=== PATIENT | female | born 1980 | race Caucasian/White ===

== ENCOUNTER → 2016-10-11 | Outpatient (CLI) | payer BC ==
[~2016-10-11] MED LIST: ACET500L36 PO; AMOX500C5 PO; AZIT250T5 PO; AZIT250T81 PO; BENZ-22 PO; GFN600TCR PO; SRTR100T PO
[2016-10-11 16:11] VITALS: BP 142/78
--- NOTE | 2016-10-11 16:11 | Urgent Care T Sheet Gen (E) ---
Intake General Temperature (Fahrenheit): 98.6 Pulse: 92 Blood Pressure Systolic: 142 Blood Pressure Diastolic: 78 Respirations: 18 SPO2: 98 Description of Symptoms Patient presents with L ear pain and fullness since Friday. patient states sounds are muffled and whistle at times. No fever. No history of allergies. No recent cold or nasal congestion. No meds to treat her symptoms. History of Present Illness Allergies: Coded Allergies: No Known Drug Allergies (Unverified , 07/22/15) Home Meds Active Scripts Azithromycin (Zithromax Z-Lasha)6 Tab/Pkt [id number] Mg PO SEE INSTRUCTIONS #6 TAB Ref 0 Day One: Take 2 tablets by mouth Days Two-Five: Take 1 tablet by mouth Prov:DONAL BRANDON 04/23/16 Benzonatate (Tessalon Perles)100 Mg [id number] Mg PO TID PRN COUGH #20 CAP Prov:DONAL BRANDON 04/23/16 Amoxicillin (Amoxil)500 Mg [id number] Mg PO TID 10 Days Prov:HAYLEY BAIN MD 07/22/15 Reported Medications Azithromycin 250 Mg [id number] Mg PO DAILY 07/22/15 Acetaminophen 500 Mg/5 Ml Liquid1,000 Mg PO NEEDED 07/22/15 Guaifenesin (Mucinex)600 Mg [id number] Mg PO NEEDED 07/22/15 Sertraline HCl 100 Mg Zyktjf071 Mg PO DAILY 07/22/15 Respiratory Constitutional Symptoms: No syptoms reported EENTM: Ear pain Respiratory: No symptoms reported Cardiovascular: No symptoms reported All Other Systems Reviewed Remaining Systems: All other systems reviewed with negative findings Past Ufshkwz-Yfbomi-Kbeflm Hx Patient's Social History Recent foreign travel: No Surgeries/Hospitalizations Hospitalization/Surgery Hx: Right Achilles tendon repiar; , Gallbladder Respiratory Respiratory History: None Cardiovascular Cardiovascular History: None Gastrointestinal GI/Endocrine History: None HEENT Impaired Vision: None Hearing Impaired: None Integumentary Integumentary History: Other, see comments Comment: fever, chills Psychosocial Behavior Disorders: Depression Physical Exam Physical Exam General Appearance: WD/WN No apparent distress Eyes, Ears, Nose, Throat Ex: Pharynx normal TM abnormal (L) (air fluid bubbles. no cerumen. mildly tender with movement of the tragus) Other (nose is clear) Neck Exam: SuppleNo Lymphadenopathy Respiratory Exam: Lungs clear Normal breath sounds Cardiovascular Exam: Regular rate, rhythm Departure Urgent Care Impression Impression: Primary Impression: Eustachian tube dysfunction Qualified Code: H69.82 - Other specified disorders of Eustachian tube, left ear Departure Disposition: 01 HOME OR SELF-CARE Condition: Stable Referrals: ERIC NIXON MD (PCP) Additional Instructions: Gave the patient several different treatment options including oral steroid, nasal steroid, decongestants and anti-histamines. Patient would like to treat with anti-histamines. If no better or if she would like to aggressively treat the fluid in the ear, she may call and at that time we will prescribe a short course of Prednisone 40mg daily x 3 days Return if no better Patient understands DC instructions. All questions were answered. End of report . DONAL BRANDON Oct 11, 2016 16:11
== END ==
LOC: MHUC 15:52
PROVIDERS: ATTEND Physician Assistant
DX: H69.82 Other specified disorders of Eustachian tube, left ear (principal)
CPT/HCPCS: 99213